=== PATIENT | female | born 1980 | race Caucasian/White ===

== ENCOUNTER 2022-03-19 13:30 | Emergency (ER) | payer BC, MEDICAID ==
[~2022-03-19] VITALS: Ht 157.5 cm; Wt 63.9 kg
[2022-03-19] MEDS ORDERED: LORazepam 0.5 MG TAB PO ONE (15:15)
[2022-03-19 16:00] VITALS: BP 135/83
[2022-03-19] MEDS ORDERED: BUSP15TA60 PO (16:21)
[2022-03-19] MEDS ORDERED: SERT25TA84 PO (16:21)
== END 2022-03-19 16:14 | disposition home or self-care (01) ==
LOC: ER 13:30
DX: F41.9 Anxiety disorder, unspecified (principal)
CPT/HCPCS: 71045